=== PATIENT | male | born 1950 | race Caucasian/White ===

== ENCOUNTER 2018-05-01 05:06 | Emergency (ER) | payer MEDICARE ==
[~2018-05-01] VITALS: Ht 175.3 cm; Wt 88.6 kg
[2018-05-01 05:10] VITALS: BP 109/68; Ht 175.3 cm; Wt 88.6 kg
[2018-05-01] MEDS ORDERED: VERAPAMIL HCL40 MG PO (05:11)
[2018-05-01] MEDS ORDERED: LISINOPRIL40 MG PO (05:11)
[2018-05-01] MEDS ORDERED: MEDROL DOSE PACK4 MG PO (20:04)
[2018-05-01] MEDS ORDERED: CYCLOBENZAPRINE10 MG PO (20:04)
== END 2018-05-08 03:25 | disposition home or self-care (01) ==
LOC: D.ER 05:06
DX: S00.93XA Contusion of unspecified part of head, initial encounter (principal); W18.30XA Fall on same level, unspecified, initial encounter; Y93.89 Activity, other specified; Y92.019 Unspecified place in single-family (private) house as the place of occurrence of the external cause

== ENCOUNTER 2018-05-01 16:33 | Emergency (ER) | payer MEDICARE ==
[~2018-05-01] VITALS: Ht 175.3 cm; Wt 88.6 kg
[~2018-05-01 16:33] MED LIST: LISINOPRIL40 MG PO; VERAPAMIL HCL40 MG PO
[2018-05-01 16:58] VITALS: Ht 175.3 cm; Wt 88.6 kg
[2018-05-01] MEDS ORDERED: MEDROL DOSE PACK4 MG PO (20:04)
[2018-05-01] MEDS ORDERED: CYCLOBENZAPRINE10 MG PO (20:04)
[2018-05-01 20:35] VITALS: BP 126/84
== END 2018-05-01 20:36 | disposition home or self-care (01) ==
LOC: D.ER 16:33
DX: M79.642 Pain in left hand (principal); M79.641 Pain in right hand